=== PATIENT | female | born 1975 | race Caucasian/White ===

== ENCOUNTER 2020-01-18 05:52 | Outpatient (RCR) | payer BC ==
[~2020-01-18] VITALS: Ht 170.2 cm; Wt 106.8 kg
[~2020-01-18 05:52] MED LIST: ADVAIR; ALBU17AE23; CETI10TA17; MONT10TA21; PNT40TEC
[2020-01-19] MEDS ORDERED: DILT180C67 PO (11:27)
[2020-01-19] MEDS ORDERED: MONT10TA26 PO (11:27)
[2020-01-19] MEDS ORDERED: ZOLP5TAB PO (11:27)
[2020-01-19] MEDS ORDERED: CETI10TA17 PO (11:27)
[2020-01-19] MEDS ORDERED: BUSP10TA95 PO (11:27)
[2020-01-19] MEDS ORDERED: RT-ALBUINH IH (11:27)
[2020-01-19] MEDS ORDERED: MOME13HF IH (11:27)
[2020-01-19] MEDS ORDERED: PANT40TA52 PO (11:27)
[2020-01-19] MEDS ORDERED: CITA40TA19 PO (11:27)
== END 2020-01-21 09:53 | disposition home or self-care (01) ==
LOC: PREOP 05:52 → EDSTATUS 12:30 → PREOP 01-21 09:53
PROVIDERS: ATTEND Podiatrist Foot & Ankle Surgery
DX: Z01.818 Encounter for other preprocedural examination (principal)

== ENCOUNTER 2020-01-25 06:01 | Day surgery (SDC) | payer BC ==
[2020-01-25] VITALS (11 sets, daily range): BP systolic 52–156; BP diastolic 71–97
[~2020-01-25] VITALS: Ht 170.2 cm; Wt 106.8 kg
[~2020-01-25 06:01] MED LIST changes: +BUSP10TA95 PO; +CETI10TA17 PO; +CITA40TA19 PO; +DILT180C67 PO; +MOME13HF IH; +MONT10TA26 PO; +PANT40TA52 PO; +RT-ALBUINH IH; +ZOLP5TAB PO
[2020-01-25] MEDS ORDERED: LACTATED RINGERS 1,000 ML IV PRN (06:05)
[2020-01-25] MEDS ORDERED: WATER (STERILE) FOR INJECTION 10 ML ONE (06:40)
[2020-01-25] MEDS ORDERED: ceFAZolin INJECTION 1,000 MG ONE (06:40)
[2020-01-25] MEDS ORDERED: ceFAZolin INJECTION 1,000 MG in WATER (STERILE) FOR INJECTION 10 ML IV ONE (06:45)
[2020-01-25] MEDS ORDERED: fentaNYL INJECTION 100 MCG/2 ML AMP ONE (06:48)
[2020-01-25] MEDS ORDERED: MIDAZOLAM 2 MG/2 ML (VERSED) VIAL ONE (06:49)
[2020-01-25] MEDS ORDERED: BUPIVACAINE 0.5% 30 ML (SENSORCAINE) VIAL ONE (07:11)
[2020-01-25] MEDS ORDERED: LIDOCAINE 1% INJ 20 ML 20 ML VIAL ONE (07:12)
--- NOTE | 2020-01-25 07:43 | Progress Note-Pre Operative ---
Pre-Operative Progress Note H&P Reviewed The H&P was reviewed, patient examined and no changes noted. Date Seen by Provider: Jan 25, 2020 Time Seen by Provider: 07:43 Date H&P Reviewed: Jan 25, 2020 Time H&P Reviewed: 07:43 Pre-Operative Diagnosis: Tarsal Tunnel Syndrome, Plantar Fasciitis, right foot BRIAN ROMAN DPM Jan 25, 2020 07:43
[2020-01-25] MEDS ORDERED: proPOfol 200 MG/20 ML (DIPRIVAN) VIAL IV ONE (08:02)
[2020-01-25] MEDS ORDERED: SEVOFLURANE (ULTANE) 15 ML INHAL SOLN ONE ×5 (08:02→08:57)
[2020-01-25] MEDS ORDERED: LIDOCAINE PF 2% 5 ML (XYLOCAINE) VIAL ONE (08:02)
[2020-01-25] MEDS ORDERED: ONDANSETRON 4 MG/2 ML (SDV) Z0FRAN ONE (08:02)
[2020-01-25] MEDS ORDERED: ONDANSETRON 4 MG/2 ML (SDV) Z0FRAN IVP PRN (09:15)
[2020-01-25] MEDS ORDERED: fentaNYL INJECTION 100 MCG/2 ML AMP IVP ONE (09:15)
[2020-01-25] MEDS ORDERED: morphine INJ 10 MG/ML 1ML (SYR OR VIAL) IVP ONE (09:15)
[2020-01-25] MEDS ORDERED: MEPERIDINE (DEMEROL) INJ 50 MG/ML IVP ONE (09:15)
[2020-01-25] MEDS ORDERED: LACTATED RINGERS 1,000 ML IV SCH (09:19)
--- NOTE | 2020-01-25 09:19 | Progress Note-Post Operative ---
Post-Operative Progess Note Surgeon (s)/Financial Services Technician (s) Surgeon BRIAN ROMAN DPM Financial Services Technician: none Pre-Operative Diagnosis Tarsal Tunnel Syndrome, Plantar Fasciitis, right foot Post-Operative Diagnosis Same Procedure & Operative Findings Date of Procedure 01/25/20 Procedure Performed/Findings Tarsal Tunnel Release, Plantar Fascial Release, right foot Anesthesia Type General Estimated Blood Loss Estimated blood loss (mL): Minimal Specimens/Packing Specimens Removed Plantar Fascia, right BRIAN ROMAN DPM Jan 25, 2020 09:19
[2020-01-25] MEDS ORDERED: ACHD5005 PO (09:22)
[2020-01-25] MEDS ORDERED: HYDROcodone/APAP 5 MG/325 MG (LORTAB) TAB PO PRN (09:30)
--- NOTE | 2020-01-25 10:14 | NUR ---
PATIENT REPORTS HAVING WALKER, CRUTCHES, AND KNEE SCOOTER.
--- NOTE | 2020-01-25 10:49 | Physical Therapy Progress Note ---
Therapy Progress Note Attempted PT Eval, pt declined, reporting she used crutches for this same surgery on her left foot. Reports she has crutches, knee scooter and a walker available. Reports she feels she will be able to manage crutches on all surfaces including steps at home. No eval rendered. ASHLEY JUAREZ PT Jan 25, 2020 10:49
--- NOTE | 2020-01-25 12:40 | Anesthesia-General Post-Op ---
General Patient Condition Mental Status/LOC: Same as Preop Cardiovascular: Satisfactory Nausea/Vomiting: Absent Respiratory: Satisfactory Pain: Controlled Complications: Absent Post Op Complications Complications None Follow Up Care/Instructions Patient Instructions None needed. Anesthesia/Patient Condition Patient Condition Patient is doing well, no complaints, stable vital signs, no apparent adverse anesthesia problems. No complications reported per nursing. RISHI SALEH CRNA Jan 25, 2020 12:40
--- NOTE | 2020-01-25 14:53 | OPERATIVE REPORT ---
DATE OF SERVICE: 01/25/2020 SURGEON: Viviana Ewing DPM. PREOPERATIVE DIAGNOSES: 1. Tarsal tunnel syndrome, right. 2. Plantar fasciitis, right. POSTOPERATIVE DIAGNOSES: 1. Tarsal tunnel syndrome, right. 2. Plantar fasciitis, right. PROCEDURES PERFORMED: 1. Tarsal tunnel release, right foot. 2. Plantar fascial release, right foot. WOUND CLASS: Clean. ANESTHESIA: General. HEMOSTASIS: Pneumatic thigh tourniquet at 300 mmHg. INDICATIONS FOR PROCEDURE: This 44-year-old female presents complaining of a painful right foot and ankle. Conservative therapy is met with unsatisfactory results and the patient is agreeable to the surgical intervention after the risks and complications were discussed at length. No guarantees were extended to the patient and she is willing to proceed. DESCRIPTION OF PROCEDURE: The patient was brought back to the operating table and placed in a secure supine position. Appropriate timeout was performed. General anesthetic was induced. A pneumatic thigh tourniquet was placed on the right lower extremity over several layers of padding. Local anesthetic was administered under aseptic technique to the proximal tarsal tunnel utilizing 1:1 mixture of 1% Xylocaine and 0.5% Marcaine injected with great care not to penetrate vascular structures again to the proximal right tarsal tunnel. The right foot was then prepped and draped in a normal sterile manner. The right foot was then elevated, allowed to exsanguinate after which the tourniquet was inflated to 300 mmHg. Attention was then directed to the medial aspect of the right foot and ankle where a 6 cm longitudinal curvilinear incision was created just proximal to the medial malleolus towards the plantar aspect of the right heel. The incision was deepened in the same plane with great care to identify and retract all vital neurovascular structures. Blunt dissection was carried out to the flexor retinaculum, which was identified and gently elevated with hemostats. Once the hemostat was underneath the flexor retinaculum protecting the underlying neurovascular structures, careful dissection of the flexor retinaculum was performed with Metzenbaum scissors. Once the tarsal tunnel was released, the underlying neurovascular structures were visualized directly and no other pathology was identified. The tourniquet was released and there were no active bleeders identified. The area was further exsanguinated after which the tourniquet was reinflated. Attention was now directed to the distal tarsal tunnel, where dissection was carried out between the abductor hallucis muscle belly and the quadratus plantae, where the adductor hiatus was identified. The underlying fascia was released with great care to protect the underlying neurovascular structures. The inferior aspect of the abductor hallucis muscle belly was identified and from the underlying plantar fascia as well as the flexor digitorum brevis muscle belly. Digital inspection noted complete release of Melchor's nerve. The incision was carried out to the inferior aspect of the medial heel, where the inferior aspect and the medial aspect of the plantar fascia were visualized after dissecting the adipose tissue overlying the flexor digitorum brevis muscle belly. The plantar fascia medial band was released with Metzenbaum scissors. A section of the central band was resected as well approximately 0.5 cm in length and this was sent for gross and microscopic evaluation. The central band of the plantar fascia was found to be exceptionally thickened and yellow in discoloration. The entire wound was then flushed with copious amounts of normal saline. No other abnormalities were identified. Closure was then performed with 4-0 Vicryl for subcutaneous closure and 4-0 Prolene in a horizontal mattress type stitch to the proximal incision and a simple interrupted type stitch for the distal incision overlying the plantar fascia. Postoperative injection consisted of 12 mL of 0.5% Marcaine injected in a local infusion to the surgical site followed by 1 mL of dexamethasone injected into the proximal tarsal tunnel with great care not to inject into blood vessels. Postoperative dressing consisted of Betadine soaked Adaptic, sterile 4 x 4, sterile Kerlix, soft roll, ABDs, posterior splint and two Murray wraps. The patient tolerated the anesthesia and procedure well, was transported from the operating room to the recovery area with vital signs stable and vascular status intact to all digits of the right foot. Postop instructions were given to the patient to be nonweightbearing on the right lower extremity. She has also started 81 mg daily aspirin regimen. We will see the patient back in the office in 10 days period of time or sooner if necessary. Job ID: [id number] DocumentID: [id number] Dictated Date: 01/25/2020 09:30:55 [employer] Date: 01/25/2020 14:52:23 Dictated By: STARR TORRES
== END 2020-01-25 11:00 | disposition home or self-care (01) ==
LOC: SDC 06:01
PROVIDERS: ATTEND Podiatrist Foot & Ankle Surgery
DX: G57.51 Tarsal tunnel syndrome, right lower limb (principal); M72.2 Plantar fascial fibromatosis; J45.30 Mild persistent asthma, uncomplicated; I10 Essential (primary) hypertension; F41.9 Anxiety disorder, unspecified; K21.9 Gastro-esophageal reflux disease without esophagitis; F32.9 Major depressive disorder, single episode, unspecified; G62.9 Polyneuropathy, unspecified; E66.9 Obesity, unspecified; Z68.36 Body mass index [BMI] 36.0-36.9, adult; Z88.0 Allergy status to penicillin; Z88.2 Allergy status to sulfonamides; Z79.899 Other long term (current) drug therapy
CPT/HCPCS: 84703